=== PATIENT | female | born 1960 | race Caucasian/White ===

== ENCOUNTER 2017-01-20 07:05 | Day surgery (SDC) | payer OTHER ==
[~2017-01-20] VITALS: Ht 157.5 cm; Wt 67.5 kg
[2017-01-20] MEDS ORDERED: VITAMINS (08:20)
[2017-01-20 08:24] VITALS: Ht 157.5 cm; Wt 67.5 kg
--- NOTE | 2017-01-20 08:59 | OPPN ---
Date/Time of Note Date/Time of Note DATE: 01/20/17 TIME: 08:57 Operative Report Preoperative Diagnosis Screening colonoscopy Postoperative Diagnosis Screening colonoscopy Operation/Procedure Performed Colonoscopy all the way into the cecum Diverticulosis moderate degree left side of the colon Normal retroversion Clarity and cleanliness was good Provider: HARPREET COON MD Anesthesia Type: moderate sedation Estimated blood loss: none Transfusion Required: no Specimen: none Grafts/Implants: none Complications: no HARPREET COON MD Jan 20, 2017 08:59
[2017-01-20] MEDS ORDERED: MIDAZOLAM 1 MG/ML 2 ML INJ ONE ×3 (09:07)
[2017-01-20] MEDS ORDERED: FENTAnyl 50 MCG/ML VIAL ONE (09:07)
[2017-01-20 09:10] VITALS: BP 154/90; PULSE 61; RESP 18
--- NOTE | 2017-01-20 09:19 | GILP ---
DATE OF PROCEDURE: 01/20/2017 PROCEDURE PERFORMED: Colonoscopy. INDICATIONS FOR PROCEDURE: A 56-year-old female undergoing this procedure for colon cancer screening. Her cousin had colon cancer. Besides, there is a questionable that she had a polyp 6 years ago. The risks of the procedure, related and unrelated complications, and anesthetic risks and alternatives were discussed and informed consent was obtained. The patient was brought to the GI lab and placed in the left recumbent position and sedated with Versed 5 mg and fentanyl 100 mg. After optimal sedation, the pediatric colonoscope passed with much ease into rectum, advanced through sigmoid, descending, transverse colon all the way into the cecum. Appendiceal orifice identified. The entire caput of the cecum was examined. IC valve was normal. Rest of the colon appeared normal which was thoroughly inspected while coming out. She had a moderate degree diverticulosis on the left side of the colon. Some of them were large mouth and some of them small-mouthed. Retroversion done. No growth or polyp identified. Scope was straightened out and removed with good patient tolerance. IMPRESSION: 1. Diverticulosis of moderate size on the left side of the colon. 2. Negative all the way into the cecum. 3. Negative retroversion. 4. Clarity and cleanliness was good. 5. Digital exam was normal. PLAN: Plan at this point is to stay on high-fiber diet and next colonoscopy after 10 years. Dictated By: James Hernandez MD /[email or web address] /Document#: [id number]
== END 2017-01-20 12:46 | disposition home or self-care (01) ==
LOC: GIL 07:05
PROVIDERS: ATTEND Internal Medicine Gastroenterology
DX: Z12.11 Encounter for screening for malignant neoplasm of colon (principal); K57.30 Diverticulosis of large intestine without perforation or abscess without bleeding
CPT/HCPCS: 45378; J2250; J3010